=== PATIENT | male | born 1970 | race Caucasian/White ===

== ENCOUNTER 2016-11-12 12:45 | Emergency (ER) | payer MEDICAID ==
[~2016-11-12] VITALS: Ht 180.3 cm; Wt 107.0 kg
[~2016-11-12 12:45] MED LIST: AMLO10TA80; NAPR-681; OMEP20CA10; PARO40TA75; QUET100T; TOPI-35; TRAZ150T78
[2016-11-12 13:23] VITALS: BP 140/102
== END 2016-11-12 19:42 | disposition left against medical advice (07) ==
LOC: ER 12:45
DX: N50.819 Testicular pain, unspecified (principal); Z53.21 Procedure and treatment not carried out due to patient leaving prior to being seen by health care provider

== ENCOUNTER 2016-11-13 14:30 | Emergency (ER) | payer MEDICAID ==
[~2016-11-13] VITALS: Ht 180.3 cm; Wt 113.7 kg
[2016-11-13 14:59] VITALS: BP 142/98
[2016-11-13] MEDS ORDERED: KETOROLAC 60MG/2ML VIAL IM ONE (15:30)
== END 2016-11-13 18:40 | disposition home or self-care (01) ==
LOC: ER 15:40
DX: G89.29 Other chronic pain (principal); M25.562 Pain in left knee; M54.9 Dorsalgia, unspecified; F41.9 Anxiety disorder, unspecified; F32.9 Major depressive disorder, single episode, unspecified; I10 Essential (primary) hypertension; M19.90 Unspecified osteoarthritis, unspecified site; J45.909 Unspecified asthma, uncomplicated; F17.210 Nicotine dependence, cigarettes, uncomplicated; Z59.0 Homelessness; Z88.0 Allergy status to penicillin; Z88.3 Allergy status to other anti-infective agents; Z91.041 Radiographic dye allergy status
CPT/HCPCS: 99282; J1885

== ENCOUNTER 2017-02-13 19:10 | Emergency (ER) | payer MEDICAID ==
[~2017-02-13] VITALS: Ht 182.9 cm; Wt 118.0 kg
[2017-02-13] MEDS ORDERED: IBUPROFEN 800MG TABLET PO ONE (22:00)
[2017-02-13 22:38] VITALS: BP 142/86
== END 2017-02-13 22:42 | disposition home or self-care (01) ==
LOC: ER 19:27
DX: S93.401A Sprain of unspecified ligament of right ankle, initial encounter (principal); F41.9 Anxiety disorder, unspecified; M19.90 Unspecified osteoarthritis, unspecified site; I10 Essential (primary) hypertension; F32.9 Major depressive disorder, single episode, unspecified; J45.909 Unspecified asthma, uncomplicated; G47.00 Insomnia, unspecified; F17.210 Nicotine dependence, cigarettes, uncomplicated; Z88.0 Allergy status to penicillin; Z88.1 Allergy status to other antibiotic agents; Z91.041 Radiographic dye allergy status; W01.0XXA Fall on same level from slipping, tripping and stumbling without subsequent striking against object, initial encounter; Y93.89 Activity, other specified; Y92.89 Other specified places as the place of occurrence of the external cause
CPT/HCPCS: 73610; 99284

== ENCOUNTER 2017-03-04 09:26 | Emergency (ER) | payer MEDICAID ==
[~2017-03-04] VITALS: Ht 170.2 cm; Wt 130.0 kg
[2017-03-04 09:59] VITALS: BP 121/86
[2017-03-04] MEDS ORDERED: ACETAMINOPHEN WITH CODEINE 300/30MG TABLET PO ONE (10:00)
== END 2017-03-04 10:49 | disposition home or self-care (01) ==
LOC: ER 09:26
DX: Z48.02 Encounter for removal of sutures (principal); I10 Essential (primary) hypertension; F32.9 Major depressive disorder, single episode, unspecified; J45.909 Unspecified asthma, uncomplicated; F41.9 Anxiety disorder, unspecified; Z88.0 Allergy status to penicillin; Z91.041 Radiographic dye allergy status; Z88.1 Allergy status to other antibiotic agents; Z88.8 Allergy status to other drugs, medicaments and biological substances
CPT/HCPCS: 99281; Z7610; 99282